=== PATIENT | female | born 1935 | race Caucasian/White ===

== ENCOUNTER 2025-02-12 18:15 | Emergency (ER) | payer BC ==
[2025-02-12 18:39] VITALS: RESP 18; BMI 25.2
[2025-02-12 19:18] LABS: ABSOLUTE IMMATURE GRANULOCYTES 0.03 x10^3/uL (0.0-0.031); BASOPHILS # 0.03 x10^3/uL (0.01-0.08); EOSINOPHIL % 0.8 % (0.7-5.8); EOSINOPHILS # 0.09 x10^3/uL (0.04-0.36); MCHC 32.6 g/dl (32.2-35.5); MEAN CELL VOLUME 96.4 fl (79.4-94.8); MEAN PLT VOLUME 9.6 fl (9.4-12.3); MONOCYTE # 0.94 x10^3/uL (0.24-0.86); MONOCYTE % 8.2 % (4.7-12.5); RDW 12.5 % (12.5-17.0)
[2025-02-12 19:42] LABS: ALK PHOS 53.0 U/L (45-117); CO2 26.0 mmol/L (21-32); CREATININE 0.9 mg/dl (0.6-1.3); GLUCOSE,RANDOM 126.0 mg/dl (74-106); SGOT/AST 11.0 U/L (15-37); SGPT/ALT 7.0 U/L (7-52); TOT PROT 6.4 g/dl (6.4-8.2)
[2025-02-12 22:07] VITALS: BP 140/64; PULSE 75; TEMP 98.1
== END 2025-02-13 00:35 | disposition home or self-care (01) ==
LOC: FER 18:15
DX: S00.83XA Contusion of other part of head, initial encounter (principal); R94.31 Abnormal electrocardiogram [ECG] [EKG]; W19.XXXA Unspecified fall, initial encounter; Y92.129 Unspecified place in nursing home as the place of occurrence of the external cause
CPT/HCPCS: 36415; 70450-TC; 70486-TC; 72125-TC; 80053; 82550; 84484; 85025; 93005; 99285-25